=== PATIENT | male | born 1990 | race Caucasian/White ===

== ENCOUNTER 2020-12-18 17:07 | Emergency (ER) | payer BC, SELFPAY ==
[2020-12-18 17:20] VITALS: BP 144/81; PULSE 82; RESP 20; TEMP 36.7; O2SAT 100
--- NOTE | 2020-12-18 17:41 | ED.URI ---
HPI - URI/Sore Throat General Chief Complaint: Upper Respiratory Infection Stated Complaint: Possible Sinus Infection Time Seen by Provider: 12/18/20 17:41 Source: patient, RN notes reviewed and old records reviewed Mode of arrival: ambulatory Limitations: no limitations History of Present Illness HPI Narrative: 29 year old male who presets to express care with complaints of sinus congestion, sinus headache with facial pressure and feelings of weakness with cough for the past 3 days.Patient states that he has been taking OTC Sinex with no improvement in his symptoms. Patient also states that he has had some low grade temperatures with highest being 99F, and chills. Patient admits to daily tobacco use. MD elicited complaint: cough, rhinorrhea and nasal congestion Onset (ago): day(s) (3) Consistency: constant Description of mucous: clear Able to tolerate fluids by mouth: Yes Exacerbating factors: exertion Relieving factors: nothing Associated symptoms: headache, rhinorrhea, nasal congestion and cough Treatments prior to arrival: other (sinex) Related Data Home Medications Medication Instructions Recorded Confirmed propranolol 10 mg PO Q12H PRN 12/18/20 12/18/20 Allergies Allergy/AdvReac Type Severity Reaction Status Date / Time No Known Allergies Allergy Verified 12/18/20 17:33 Review of Systems Review of Systems: Narrative: CONSTITUTIONAL: Reports highest temp 99 F with chills, or sweats. EYES: Denies visual changes, redness, or discharge. ENT: Positive for rhinorrhea, congestion, sinus pressure,no sore throat, or otalgia. CARDIOVASCULAR: Denies chest pain, palpitations, or edema. RESPIRATORY: non productive cough no acute dyspnea. GASTROINTESTINAL: Denies abdominal pain, nausea, vomiting, or diarrhea. GENITOURINARY: Denies dysuria or hematuria. SKIN: Denies rash or itching. MUSCULOSKELETAL: Denies back pain, joint pain, or myalgia. NEUROLOGIC: Positive headache,no numbness, or weakness. PSYCHIATRIC: Positive history of anxiety or depression. All systems reviewed & are unremarkable except as noted in HPI and below PMFSH Past Medical History Medical History (Updated 12/23/20 @ 16:26 by Jackelyn Genao NP) Anxiety Sinus infection Surgical History Surgical History (Updated 12/23/20 @ 16:26 by Jackelyn Genao NP) No history of previous surgery Family History Family History (Updated 12/23/20 @ 16:25 by Jackelyn Genao NP) Other No significant family history Social History Social History (Updated 12/23/20 @ 16:20 by Jackelyn Genao NP) Smoking status: Current every day smoker Tobacco type: cigarettes Alcohol intake: current Alcohol use details: social Substance use: never Living arrangements: with family Gender identity (if verbalized by the patient): Male Comments At time of signature, agree with nursing past medical, surgical, social and family history. There is no relevant family history pertinent to the presenting complaint Exam Narrative: Exam Narrative: GENERAL: Well-appearing, well-nourished, and in no acute distress. HEAD: Normocephalic, atraumatic. EYES: PERRLA and EOMI. ENT: Nares red with clear nasal rhinorrhea or epistaxis. Mucous membranes moist.TM's normal with good light reflex, throat red with no lesions or exudates no tonsil enlargement, post nasal drainage noted. NECK: Supple.no lymphadenopathy CHEST: Clear to auscultation. No respiratory distress.SAO2 100% on room air, non productive cough HEART: Regular rate and rhythm. No murmur heard. Normal peripheral pulses. ABDOMEN: Soft, nontender, nondistended, normal active bowel sounds. EXTREMITIES: Normal range of motion. No edema. SKIN: Warm, dry, no rash. NEURO: No focal deficits. Alert and oriented x3. Course Vital Signs Vital signs: Vital Signs Temperature 36.7 C 12/18/20 17:20 Pulse Rate 82 12/18/20 17:20 Respiratory Rate 20 12/18/20 17:20 Blood Pressure 144/81 H 12/18/20 17:20 Pulse
== END 2020-12-18 18:15 | disposition home or self-care (01) ==
PROVIDERS: Emergency Provider Registered Nurse
DX: J06.9 Acute upper respiratory infection, unspecified (principal)
CPT/HCPCS: 99213; G0463

== ENCOUNTER 2021-09-01 12:56 | Emergency (ER) | payer BC, SELFPAY ==
[2021-09-01 13:05] VITALS: BP 145/76; PULSE 119; RESP 20; TEMP 36.9; O2SAT 100
--- NOTE | 2021-09-01 13:42 | ED.DENTAL ---
HPI - Dental/Oral General Chief complaint: Dental/Oral Stated complaint: tooth inf Time Seen by Provider: 09/01/21 13:42 Source: patient, RN notes reviewed and old records reviewed Mode of arrival: ambulatory Limitations: no limitations History of Present Illness HPI Narrative: 30 year old male who presents to [facility] care with complaints of dental pain to the left lower molar #17 for the past 3 days with swelling to the facial area along his posterior left jaw. Patient reports that he has been taking Ibuprofen for his discomfort which has helped the pain some but states he needs antibiotic till he can get into a dentist. Patient reports that he has not seen a dentist for 15 years, has not had dental insurance. Patient has multiple decayed and broken teeth of all molar area of mouth. Patient states that he has history of smoking cigarettes and drinking a lot of soda and poor dental care.Patient denies any difficulty with his swallowing or any difficulty with breathing. MD Complaint: tooth pain Location: Tooth # (17) Onset (ago): day(s) (3) Duration: constant Severity: moderate Related Data Allergies Allergy/AdvReac Type Severity Reaction Status Date / Time clavulanic acid AdvReac Mild Nausea and Verified 09/01/21 13:43 [From Augmentin] Vomiting Review of Systems Review of Systems: CONSTITUTIONAL: Denies fever, chills, or sweats. EYES: Denies visual changes, redness, or discharge. ENT: Denies rhinorrhea, congestion, sore throat, or otalgia.positive for dental pain and swelling and redness of gums left lower posterior molar area CARDIOVASCULAR: Denies chest pain, palpitations, or edema. RESPIRATORY: Denies cough or dyspnea. GASTROINTESTINAL: Denies abdominal pain, nausea, vomiting, or diarrhea. GENITOURINARY: Denies dysuria or hematuria. SKIN: Denies rash or itching. MUSCULOSKELETAL: Denies back pain, joint pain, or myalgia. NEUROLOGIC: Denies headache, numbness, or weakness. PSYCHIATRIC: Denies anxiety or depression. All systems reviewed & are unremarkable except as noted in HPI and below PMFSH Past Medical History Medical History Anxiety Sinus infection Surgical History Surgical History No history of previous surgery Family History Family History Other No significant family history Social History Social History Smoking status: Current every day smoker Tobacco type: cigarettes Alcohol intake: current Alcohol use details: social Substance use: never Gender identity (if verbalized by the patient): Male Comments At time of signature, agree with nursing past medical, surgical, social and family history. There is no relevant family history pertinent to the presenting complaint Exam Narrative: GENERAL: Well-appearing, well-nourished, and in no acute distress. HEAD: Normocephalic, atraumatic. EYES: PERRLA and EOMI. ENT: Nares clear, no rhinorrhea or epistaxis. Mucous membranes moist.TM's normal with good light reflex, throat pink with no lesions exudates or tonsil swelling, No Sahil angina noted, no trismus noted, Patient has numerous decayed molars bilateral upper and lower gums with redness swelling around most posterior left lower molar with tooth decay present, mild swelling to jaw area on left side. NECK: Supple. no lymphadenopathy CHEST: Clear to auscultation. No respiratory distress.SAO2 100% on room air. HEART: Regular rate and rhythm. No murmur heard. Normal peripheral pulses. ABDOMEN: Soft, nontender, nondistended, normal active bowel sounds. EXTREMITIES: Normal range of motion. No edema. SKIN: Warm, dry, no rash. NEURO: No focal deficits. Alert and oriented x3. Course Course Level of Care: Express Care Visit Vital Signs Vital signs: Vital Signs Temperature 36.9 C 02
== END 2021-09-01 13:50 | disposition home or self-care (01) ==
PROVIDERS: Emergency Provider Registered Nurse
DX: K04.7 Periapical abscess without sinus (principal); K02.9 Dental caries, unspecified; F17.210 Nicotine dependence, cigarettes, uncomplicated
CPT/HCPCS: 99213; G0463